=== PATIENT | female | born 2000 | race Caucasian/White ===

== ENCOUNTER 2021-10-27 00:13 | Emergency (ER) | payer OTHER ==
[2021-10-27 01:22] VITALS: BP 116/78
== END 2021-10-27 01:23 | disposition home or self-care (01) ==
LOC: ED 00:13
DX: T55.0X1A Toxic effect of soaps, accidental (unintentional), initial encounter (principal); L50.9 Urticaria, unspecified; Z88.1 Allergy status to other antibiotic agents
CPT/HCPCS: J7512

== ENCOUNTER 2021-10-29 08:15 | Emergency (ER) | payer OTHER ==
[2021-10-29 08:20] VITALS: BP 122/78
[2021-10-29] MEDS ORDERED: PREDNISONE10 MG PO (10:25)
== END 2021-10-29 10:33 | disposition home or self-care (01) ==
LOC: ED 08:15
DX: L50.0 Allergic urticaria (principal)
CPT/HCPCS: J1200; J2930